=== PATIENT | male | born 1995 | race Caucasian/White ===

== ENCOUNTER 2016-11-29 11:03 | Emergency (ER) | payer OTHER ==
[~2016-11-29] VITALS: Ht 157.5 cm; Wt 89.0 kg
[~2016-11-29 11:03] MED LIST: IBUP-725
[2016-11-29 11:12] VITALS: Ht 157.5 cm; Wt 89.0 kg
[2016-11-29] MEDS ORDERED: CIPR7.5D4 BOTH EARS (11:30)
--- NOTE | 2016-11-29 11:35 | ERA ---
ER Documentation Chief Complaint Date/Time DATE: 11/29/16 TIME: 11:32 Chief Complaint LEFT EAR PAIN HPI 21-year-old male presented with a chief complaint of left ear pain. Describes the pain as dull. Has had headache 1 day. Taken Advil with minimal relief. Otitis denies Patient denies history of trauma, change/loss of hearing, tinnitus , dizziness, luz-auricular pain, or neck stiffness. Vaccination status is up to date. ROS All systems reviewed and are negative except as per history of present illness. Medications Home Meds Active Scripts Ciprofloxacin Hcl/Dexameth (Ciprodex Otic Suspension) 7.5 Ml Drops.susp, 4 DROP BOTH EARS BID for 7 Days, EA Prov:GUNNAR BRYANT PA-C 11/29/16 Reported Medications Ibuprofen (Motrin) 400 Mg Tablet 06/05/10 Allergies Allergies: Coded Allergies: No Known Drug Allergies (Verified Allergy, Mild, 06/05/10) PMhx/Soc History of Surgery: No Anesthesia Reaction: No Hx Neurological Disorder: No Hx Respiratory Disorders: No Hx Cardiac Disorders: No Hx Psychiatric Problems: No Hx Miscellaneous Medical Probl: Yes (stitches placed here after head laceration ) Hx Alcohol Use: Yes Hx Substance Use: Yes Hx Tobacco Use: No Physical Exam Vitals Vital Signs Date Time Temp Pulse Resp B/P Pulse Ox O2 Delivery O2 Flow Rate FiO2 11/29/16 11:12 98.1 71 20 131/71 99 Physical Exam Const: Healthy-appearing. Well-nourished. Well-developed. No acute distress. Ears: Erythematous left external auditory ear canal. Pain/tenderness with movement of the external auricle. White pustular formation around the TM. Light cone reflex visualized bilaterally. No mastoid tenderness. Oral: No oral edema visualized. Mucous membranes moist and pink. Neck: No cervical lymphadenopathy, masses or goiter palpated. Non- tender. Trachea midline. Supple ~ No meningismus. Neur: Finger-rub test unremarkable. Awake, alert and oriented x3. Neurovascularly intact bilaterally. Pulm: No dyspnea, stridor, tripoding or drooling. Good air movement. Clear to auscultation bilaterally. Nose: Normal external nose; no discharge, septal deviation, or sinus tenderness. Head: Normocephalic, Atraumatic. Eyes: Non-injected; No scleral erythema, discharge or foreign body. EOMI and SANDRA bilaterally. Cardio: Regular rate and rhythm; No murmurs, gallops or rubs auscultated. Radial and posterior tibial pulses 2+ bilaterally. Capillary refill less than 2 seconds. Abd: Soft, non tender, non distended. No guarding, masses. Normal bowel sounds. No McBurney's point or suprapubic tenderness. MS: Normal motor strength, normal tone with gross examination. Skin: No petechiae or rashes. Good turgor. Back: No midline, flank or CVA tenderness. Ext: No cyanosis or edema. Normal movement of all extremities grossly observed. Psych: Normal Mood and Affect. Procedures/MDM Patient was evaluated for left ear discomfort presenting as described in the history and physical exam. The patients signs and symptoms are most consistent with otitis externa of the left ear. The treatment will thus include Ciprodex. At this time I do not suspect malignant otitis externa, hearing loss, intracranial pathology, foreign body, meningitis, or other serious bacterial infections. I have spoke with the patient regarding their condition and future management. They have verbally responded that they understand their status and treatment plan. The patient is well-appearing, vitals are stable, and their current condition is appropriate for discharge. The patient will be given discharge instructions with return precautions. Departure Diagnosis: Primary Impression: External otitis Qualified Code: H60.392 - Other infective acute otitis externa of left ear Condition: Stable Patient Instructions: External Ear Infection (Adult) Additional Instructions: Follow up with your PCP within the next 1-3 days for a more thorough evaluation and a possible referral to a specialist. Return the the emergency department immediately if symptoms worsen or change. If you have any questions regarding medications, ask your pharmacist or us before you leave. If any adverse reactions occur while taking your medications, discontinue the treatment and return to the emergency department immediately. Take your medications as directed, and complete the entire course of treatment. GUNNAR BRYANT PA-C Nov 29, 2016 11:35
== END 2016-11-29 11:41 | disposition home or self-care (01) ==
LOC: FTE 11:03
DX: H60.392 Other infective otitis externa, left ear (principal)
CPT/HCPCS: 99283